=== PATIENT | male | born 1985 | race Two or more races ===

== ENCOUNTER 2019-07-19 19:39 | Emergency (ER) | payer MEDICAID, OTHER ==
[2019-07-19 20:04] LABS: ABSOLUTE BASOPHILS # (AUTO) 0.1 10^3/uL (0.0-0.2); ABSOLUTE EOSINOPHILS # (AUTO) 0.2 10^3/uL (0.0-0.6); ABSOLUTE LYMPHOCYTES (AUTO) 2.4 10^3/uL (0.5-4.7); ABSOLUTE MONOCYTES (AUTO) 0.7 10^3/uL (0.1-1.4); ABSOLUTE NEUT (AUTO) 4.1 10^3/uL (1.7-8.2); BASOPHILS % (AUTO) 1.4 % (0-2); HEMATOCRIT 44.7 % (37.9-51.0); HEMOGLOBIN 15.9 g/dL (13.5-17.0); MEAN CORPUSCULAR HEMOGLOBIN 28.7 pg (27.0-33.4); MEAN CORPUSCULAR HGB CONC 35.5 g/dL (32.0-36.0); MEAN CORPUSCULAR VOLUME 81 fl (80-97); MONOCYTES % (AUTO) 9.4 % (3-13); PLATELET COUNT 349 10^3/uL (150-450); RED BLOOD COUNT 5.52 10^6/uL (4.35-5.55); RED CELL DISTRIBUTION WIDTH 14.3 % (11.5-14.0); SEGMENTED NEUTROPHILS % (AUTO) 54.2 % (42-78); TOTAL CELLS COUNTED % (AUTO) 100 %; WHITE BLOOD COUNT 7.5 10^3/uL (4.0-10.5)
--- NOTE | 2019-07-19 20:13 | ER Document Report ---
ED General - General Chief Complaint: Syncope Stated Complaint: SYNCOPE WITH FALL TRAVEL OUTSIDE OF THE [place] IN LAST 30 DAYS: No - HPI Notes: Mr. Goyal is a 34-year-old male seen for evaluation of syncope and head injury. 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 Patient says he felt fine before the incident and does not recall what happened. Bystanders reported that he fell from the chair striking the posterior aspect of his head against a metal bar. He was apparently briefly unresponsive and it is uncertain whether he had any involuntary movements. Patient denied urinary incontinence but his clothing is damp and there is a strong smell of urine present. Patient says [facility] being [facility] and that they have him set up for a study for sleep apnea but this has not yet been done. Patient denies any prior syncopal episodes. He denies any history of head injury or concussion. He now complains of being photophobic and having dull headache and mild nausea. He denies any focal weakness or any difficulty swallowing or speaking. Patient has a history of hypertension and is been on losartan 100 mg daily for over a year. No other medications. He has had surgery for an orthopedic injury of his shoulder in the past. He denies any known history of cardiac problems. Patient is a non-smoker. Denies any use of illicit drugs. Rare social alcohol consumption. - Related Data Allergies/Adverse Reactions: No Known Allergies Allergy (Verified 07/07/17 17:55) Home Medications: losartan Past Medical History - General Information source: Patient, Emergency Med Personnel - Social History Smoking Status: Never Smoker Frequency of alcohol use: Rare Drug Abuse: None Family History: Arthritis. denies: CAD, COPD, CVA, DM, Hyperlipidemia, Hyper tension, Malignancy, Thyroid Disfunction Patient has suicidal ideation: No Patient has homicidal ideation: No - Past Medical History Cardiac Medical History: Reports: Hx Hypertension Pulmonary Medical History: Reports: Hx Sleep Apnea Renal/ Medical History: Denies: Hx Peritoneal Dialysis Musculoskeletal Medical History: Reports Hx Musculoskeletal Deformity - Chronic back pain, Reports Hx Musculoskeletal Trauma - Torn rotator cuff for and labrum tear Past Surgical History: Reports: Hx Orthopedic Surgery - lt rotator cuff - Immunizations Immunizations up to date: Yes Hx Diphtheria, Pertussis, Tetanus Vaccination: Yes Review of Systems - Review of Systems Notes: Constitutional: Negative for fever. HENT: Negative for sore throat. Eyes: Negative for visual changes. Cardiovascular: Negative for chest pain. Respiratory: Negative for shortness of breath. Gastrointestinal: Mild nausea. Negative for abdominal pain, vomiting or diarrhea. Genitourinary: Negative for dysuria. Musculoskeletal: Negative for back pain. Skin: Negative for rash. Neurological: As per HPI. 10 point ROS negative except as marked above and in HPI. Physical Exam - Vital signs Vitals: Temp Pulse Resp BP Pulse Ox 98.9 F 76 16 164/111 H 98 07/19/19 19:53 07/19/19 19:53 07/19/19 19:53 07/19/19 19:53 07/19/19 19:53 Notes: GENERAL: Moderately obese male who appears uncomfortable and photophobic. Patient has an improvised C-spine immobilization with a towel apparently placed by EMS. Odor of urine is present. Clothing is damp. SKIN: Good turgor no rashes. HEAD: 3 cm hematoma posterior scalp area which is tender. There is no bleeding or crepitus. EYES: Photophobic. PERRLA. EOMI. Conjunctivae and sclerae clear. EARS: CANALS AND TMS CLEAR. NOSE: CLEAR. MOUTH: Moist mucosa. Good dentition. No stridor or edema. No drooling. No abrasions of tongue present. Throat: Clear. NECK: Tender midline posteriorly without step-off or crepitus.. No masses or thyromegaly. No adenopathy. Carotids 2+ without bruits. No JVD. BACK: Symmetrical without tenderness. CHEST: Respirations unlabored. Breath sounds clear and symmetrical. HEART: Regular rhythm. No murmur gallop or rub. ABDOMEN: Soft obese nontender without masses, organomegaly or rebound. Bowel sounds normally active. No bruits. GENITALIA: Deferred. EXTREMITIES: No edema. No calf tenderness. Cap refill less than 1.5 seconds. Dorsalis pedis and posterior tibial pulses 3+ and symmetrical. NEUROLOGICAL: GCS minus 1 4 eyes closed equals 14. Sleepy but oriented x3. Gait not initially tested. Fluent speech. Cranial nerves II through XII intact. Sensorimotor and cerebellar normal. Normal tone. DTRs 2+ and symmetrical. No ankle clonus. Course - Re-evaluation Re-evalutation: 07/19/19 22:54 Initial presentation consistent with syncopal episode versus new onset seizure with details somewhat unclear. Also of concern is the fact this man is being worked up for sleep apnea syndrome. His EKG was relatively unremarkable and no dysrhythmias were observed during period of monitoring here. Head CT was fine. Plain films of the C-spine showed no fracture or subluxation. His chemistry profile and CBC were good. His troponin was negative. Urine drug screen was negative alcohol was negative. The circumstances of the incident, the patient's sleepiness when he arrived as well as his apparent incontinence of urine suggested possible postictal state related to new seizure activity. He was also somewhat nauseated. The symptoms, however, could possibly be the result of a mild concussion resulting from the fall. He was observed for an extended period of time in the emergency department and looks very stable. His fiance is here and will take him home and supervise his condition at home. He is been instructed not to drive until he is been reevaluated by his primary care doctor and I told him that I think he should be seen by a neurologist and probably have a head MRI and EEG as an outpatient. I have given him a work note for the next 3 days. I will send him home with some Zofran and instructions to take Tylenol as needed. Ice packs as needed. He is instructed to return here as needed for new or worsening symptoms. He is given a head injury sheet - Vital Signs Vital signs: Temp Pulse Resp BP Pulse Ox 98.9 F 76 21 H 164/111 H 93 07/19/19 19:53 07/19/19 19:53 07/19/19 21:00 07/19/19 19:53 07/19/19 21:00 - Laboratory Result Diagrams: 07/19/19 19:53 07/19/19 19:53 Laboratory results interpreted by me: 07/19/19 07/19/19 07/19/19 19:53 19:53 20:30 RDW 14.3 H ABG pO2 77.3 L ABG HCO3 25.4 H Creatine Kinase 383 H Total Protein 8.3 H Urine Urobilinogen 07/19/19 21:45 RDW ABG pO2 ABG HCO3 Creatine Kinase Total Protein Urine Urobilinogen 2.0 H - Diagnostic Test Radiology reviewed: Reports reviewed - EKG Interpretation by Me EKG shows normal: Sinus rhythm Rate: Normal Rhythm: NSR - Rate 66. Nonspecific T wave abnormality. Discharge - Discharge Clinical Impression: Concussion Syncope Qualifiers: Syncope type: unspecified Qualified Code(s): R55 - Syncope and collapse Scalp hematoma Qualifiers: Encounter type: initial encounter Qualified Code(s): S00.03XA - Contusion of scalp, initial encounter Condition: Stable Disposition: HOME, SELF-CARE Additional Instructions: Syncopal Episode Syncope (fainting or near-fainting) can occur from many different health problems. Or it can be a simple fainting spell requiring no treatment. It is s afe for you to go home, but further evaluation will likely be necessary. Your work-up may include tests for internal bleeding, heart disease, medication problems, or near-strokes. Tests are not always required, however, depending on the nature of your problem. The warning signs of an impending faint include: dizziness, lightheadedness, nausea, hot flashes, tingling, and weakness. If this happens, lay down and put your feet up, then wait until all of these symptoms have passed before standing up again. If these episodes become recurrent, or if you develop chest pain, heart palpitations, mental confusion, blurred vision, or headache, then you should call the physician, or go to the emergency room. Seizure You May have had a seizure. Seizure disorders (epilepsy) of one sort or another affect about one out of 50 people. The seizure occurs because of abnormal electrical activity in the brain. Seizures may be due to drugs and alcohol, strokes, brain injury, or infection. In the most common form of epilepsy, no cause can be found. You will require further evaluation to determine the cause of your seizure, and to determine whether anti-seizure medication is required. This follow-up testing is important, so please call us if you encounter problems with scheduling of tests or appointments. YOU SHOULD NOT DRIVE until released to do so by your physician. The law requires that seizures be reported to the medical driver's license bureau--a seizure while driving could be catastrophic. Call the doctor if seizures recur, or if you develop new symptoms such as fever, severe headache, stiff neck, confusion or increasing sleepiness, weakness or numbness, or visual problems. Scalp Hematoma You have a scalp hematoma. This is a bump caused by blood underneath the scalp. This is a common injury, and usually causes only mild local pain or headache. There is no evidence of a skull fracture or of a brain injury. A scalp hematoma will usually disappear after a few days. Put cold packs on the swollen area for 20-30 minutes every 2-3 hours until the swelling improves. Use acetaminophen or ibuprofen for pain. Avoid aspirin because this may increase bleeding under the scalp. You may have a mild headache for a few days. Call the doctor or return if there is severe headache, confusion, personality changes, vomiting, severe dizziness, or difficulty with balance or coordination. Tylenol as needed. Zofran as needed for nausea. You are not allowed to drive until you are reevaluated by your primary care doctor and you should also talk with your primary care doctor about referral to a neurologist for further evalu ation and consideration of outpatient EEG and MRI scan of the brain. You should also talk with your doctor about prompt completion of sleep study for evaluation of possible sleep apnea. Prescriptions: Ondansetron [Zofran Odt 4 mg Tablet] 1 - 2 tab PO Q4H PRN #15 tab.rapdis PRN Reason: For Nausea/Vomiting
[2019-07-19 20:33] LABS: ALBUMIN 4.8 g/dL (3.5-5.0); ALKALINE PHOSPHATASE 89 U/L (38-126); ANION GAP 11 (5-19); ASPARTATE AMINO TRANSFERASE 57 U/L (17-59); BILIRUBIN,DIRECT 0.2 mg/dL (0.0-0.4); BILIRUBIN,TOTAL 0.8 mg/dL (0.2-1.3); BLOOD UREA NITROGEN 18 mg/dL (7-20); CALCIUM 9.5 mg/dL (8.4-10.2); CARBON DIOXIDE 27 mmol/L (22-30); CHLORIDE 102 mmol/L (98-107); CREATINE KINASE 383 U/L (55-170); GLUCOSE 96 mg/dL (75-110); POTASSIUM 4.3 mmol/L (3.6-5.0); TOTAL PROTEIN 8.3 g/dL (6.3-8.2)
[2019-07-19] MEDS ORDERED: ONDANSETRON HCL INJ/PF 4 MG/2 ML SDV IV ONE (20:37)
--- NOTE | 2019-07-19 20:44 | RADIOLOGY REPORT (SQ) ---
EXAM DESCRIPTION: XR CHEST 1 VIEW COMPLETED DATE/TME: 07/19/2019 00:00 CLINICAL HISTORY: 34 years, Male, syncope COMPARISON: None. NUMBER OF VIEWS: One TECHNIQUE: Single frontal view of the chest was obtained LIMITATIONS: None. FINDINGS: Cardiac and mediastinal contours are normal. Lungs are clear. No pleural effusion or pneumothorax. IMPRESSION: No acute disease. copyright 2010 [employer]- All Rights Reserved
--- NOTE | 2019-07-19 20:47 | RADIOLOGY REPORT (SQ) ---
EXAM DESCRIPTION: CT HEAD WITHOUT IV CONTRAST COMPLETED DATE/TME: 07/19/2019 20:07 CLINICAL HISTORY: 34 years, Male, injury/ syncope COMPARISON: None. TECHNIQUE: Noncontrast CT of the head was performed. Coronal and sagittal reformations were created. Images stored on PACS. All CT scanners at this facility use dose modulation, iterative reconstruction, and/or weight based dosing when appropriate to reduce radiation dose to as low as reasonably achievable (ALARA). [facility]: Dose Right [facility]: CareDose [facility]: Dose Right [facility]: Teradose 4D [facility]: Zumper LIMITATIONS: None. FINDINGS: Focal area of CSF density is noted about the anterior aspect of the left middle cranial fossa, most likely corresponding to an arachnoid cyst. Similar finding is noted about the leftward aspect of the posterior fossa. Otherwise, brain parenchyma is normal in attenuation. No acute intracranial hemorrhage, mass effect, or extra-axial fluid is seen. Ventricles and sulcal spaces are normal in size and configuration. Globes and orbits show no acute abnormality. Paranasal sinuses and mastoid air cells are clear. No depressed skull fractures. However, there is soft tissue swelling about the left posterior parietal scalp. IMPRESSION: No acute intracranial abnormality. Focal soft tissue swelling about the left posterior parietal scalp. TECHNICAL DOCUMENTATION: Quality ID # [id number]: Final reports with documentation of one or more dose reduction techniques (e.g., Automated exposure control, adjustment of the mA and/or kV according to patient size, use of iterative reconstruction technique) copyright 2010 [employer]- All Rights Reserved
[2019-07-19 20:49] LABS: CREATINE KINASE MB 2.79 ng/mL (<4.55)
--- NOTE | 2019-07-19 20:49 | RADIOLOGY REPORT (SQ) ---
EXAM DESCRIPTION: [employer]: XR CERVICAL SPINE 4-5 VIEWS Views: 6 CLINICAL HISTORY: 34 years Male, fall/injury COMPARISON: None. FINDINGS: Alignment is normal. Facet joints are normal. No prevertebral edema. No focal subluxation. Disc spaces and vertebral body heights are preserved. No acute fracture. IMPRESSION: 1. Normal cervical spine.
[2019-07-19 20:50] LABS: TROPONIN I < 0.012 ng/mL
[2019-07-19 21:29] LABS: ARTERIAL BLOOD BASE EXCESS 0.6 mmol/L; ARTERIAL BLOOD H2CO3 1.25 mmol/L (1.05-1.35); ARTERIAL BLOOD HCO3 25.4 mmol/L (20-24); ARTERIAL BLOOD O2 SATURATION 95.5 % (94-98); ARTERIAL BLOOD PCO2 41.4 mmHg (35-45); ARTERIAL BLOOD PH 7.41 (7.35-7.45); ARTERIAL BLOOD PO2 77.3 mmHg (80-100); ARTERIAL BLOOD TOTAL CO2 26.6 mmol/L (23-27)
[2019-07-19 21:31] LABS: ARTERIAL BLOOD FIO2 ROOM AIR
[2019-07-19] MEDS ORDERED: KETOROLAC TROMETHAMINE INJ/PF 30 MG/1 ML SDV IV ONE (22:06)
[2019-07-19 22:07] LABS: APPEARANCE,URINE CLEAR; BILIRUBIN,URINE NEGATIVE (NEGATIVE); COLOR,URINE YELLOW; GLUCOSE, URINE NEGATIVE (NEGATIVE); KETONES,URINE NEGATIVE (NEGATIVE); LEUKOCYTE ESTERASE,URINE NEGATIVE (NEGATIVE); NITRITE,URINE NEGATIVE (NEGATIVE); PROTEIN,URINE NEGATIVE (NEGATIVE); URINE SPECIFIC GRAVITY 1.019
[2019-07-19 22:23] LABS: URINE AMPHETAMINES SCREEN NEGATIVE; URINE BARBITURATES SCREEN NEGATIVE; URINE BENZODIAZEPINES SCREEN NEGATIVE; URINE COCAINE SCREEN NEGATIVE; URINE MARIJUANA (THC) SCREEN NEGATIVE; URINE METHADONE SCREEN NEGATIVE; URINE PHENCYCLIDINE SCREEN NEGATIVE
--- NOTE | 2019-07-19 22:51 | EKG REPORT ---
SEVERITY:- BORDERLINE ECG - SINUS RHYTHM BORDERLINE T WAVE ABNORMALITIES : Confirmed by: Biju Cano MD 19-Jul-2019 22:50:35
[2019-07-19 23:07] VITALS: BP 150/90
== END 2019-07-19 23:08 | disposition home or self-care (01) ==
LOC: ER 19:39
DX: R55 Syncope and collapse (principal); S06.0X9A Concussion with loss of consciousness of unspecified duration, initial encounter; W07.XXXA Fall from chair, initial encounter; W22.8XXA Striking against or struck by other objects, initial encounter; Y92.149 Unspecified place in prison as the place of occurrence of the external cause; Y99.0 Civilian activity done for income or pay; R51 Headache; H53.149 Visual discomfort, unspecified; R11.0 Nausea; I10 Essential (primary) hypertension; E66.9 Obesity, unspecified; Z79.899 Other long term (current) drug therapy
CPT/HCPCS: 93005; 96376; 99284; 96374; 36415; 82553; 80307 ×2; 82803; 82550; 85025; 80053; 81001; 84484; 72050; 71045; 70450; 93010; 36600; L0120; J1885; J2405